=== PATIENT | female | born 1960 | race Caucasian/White ===

== ENCOUNTER 2019-01-29 13:19 | Day surgery (SDC) | payer OTHER ==
[~2019-01-29] VITALS: Ht 152.4 cm; Wt 97.3 kg
[2019-01-29 14:11] VITALS: BP 145/100; PULSE 78; TEMP 97.8
[2019-01-29] MEDS ORDERED: NEURONTIN100 MG/CAP PO (14:25)
[2019-01-29] MEDS ORDERED: MAXZIDE 50 MG-71 TAB PO (14:27)
[2019-01-29] MEDS ORDERED: WELLBUTRIN SR150 M1 PO (14:27)
[2019-01-29] MEDS ORDERED: LIPITOR 10MG10 MG PO (14:28)
[2019-01-29] MEDS ORDERED: FLONASEALLERGY NS (14:28)
[2019-01-29] MEDS ORDERED: B-121000 MCG PO (14:29)
[2019-01-29] MEDS ORDERED: VITAMIND3 5000 PO (14:29)
[2019-01-29] MEDS ORDERED: PRILOTC PO (14:30)
[2019-01-29] MEDS ORDERED: EXCEDRIN1 TAB PO (14:31)
[2019-01-29] MEDS ORDERED: ADVIL200 MG PO (14:32)
[2019-01-29 16:10] VITALS: BP 147/100; PULSE 87; TEMP 98.5
--- NOTE | 2019-01-29 16:10 | NUR ---
Pt to [facility] via cart from [place]. Pt drowsy, but awake. Pt ambulates to recliner with stand by assistance x2. in room. Pudding, jello, and applesauce provided per pt request. Will continue to monitor. Call light within reach.
[2019-01-29 16:25] VITALS: BP 147/100; PULSE 81
--- NOTE | 2019-01-29 16:25 | NUR ---
Pt tolerating po food and fluids without difficulties. Will continue to monitor. Call light within reach.
[2019-01-29 16:39] VITALS: BP 146/90; PULSE 77
--- NOTE | 2019-01-29 16:40 | NUR ---
Pt continues to rest. Denies needs. Call light within reach.
--- NOTE | 2019-01-29 16:50 | NUR ---
Discharge instructions reviewed. Pt voices understanding. IV site discontinued with all parts intact. Pt up to dress. aware of HTN. No new orders given. Pt has not taken her blood pressure medication today. Instructed pt to take her blood pressure medication when she arrives home. Pt voices understanding.
[2019-01-29 16:52] VITALS: BP 137/104; PULSE 75
--- NOTE | 2019-01-29 17:03 | NUR ---
Pt escorted to private car via wheel chair. Pt accompaneid home by her .
== END 2019-01-29 17:04 | disposition home or self-care (01) ==
LOC: SDCO 13:19
DX: Z12.11 Encounter for screening for malignant neoplasm of colon (principal); D12.2 Benign neoplasm of ascending colon; D12.5 Benign neoplasm of sigmoid colon; K21.0 Gastro-esophageal reflux disease with esophagitis; K22.2 Esophageal obstruction; Z83.71 Family history of colonic polyps; Z80.0 Family history of malignant neoplasm of digestive organs; Z88.0 Allergy status to penicillin; Z88.8 Allergy status to other drugs, medicaments and biological substances
CPT/HCPCS: C1726; J2250; J2405; J3010; J7030